=== PATIENT | female | born 1985 | race Caucasian/White ===

== ENCOUNTER 2017-05-24 22:19 | Emergency (ER) | payer OTHER ==
[2017-05-24 22:26] VITALS: BP 111/69; PULSE 82; TEMP 98.1; BMI 24.7
--- NOTE | 2017-05-24 22:26 | PDOC ---
History of Present Illness - General Chief Complaint: Pain Stated Complaint: PELVIC PAIN History Source: Patient Exam Limitations: No Limitations - History of Present Illness Initial Comments: 05/24/17 23:05 Several epsiodes of severe pelvic cramping since monday. Went to urgent care today, had Urine and US after normal pelvic exam. Does not have the results of the us yet. Pain happened again so that is why she is here. Timing/Duration: 1 week, getting worse, intermittent Severity: moderate Modifying Factors: worse with: cold therapy, eating, immobilization, medication , movement, rest, other Associated Symptoms: denies: denies symptoms, chest pain, cough, diaphoresis, fever/chills, headaches, loss of appetite, malaise, nausea/vomiting, rash, seizure, shortness of breath, syncope, weakness, other Past History - Past Medical History Home Medications: Ambulatory Orders Ondansetron [Zofran Odt -] 4 mg SL TID #21 od.tablet 05/24/17 Oxycodone HCl/Acetaminophen [Percocet 5-325 mg Tablet] 1 - 2 tab PO Q6H #20 tab MDD 6 05/24/17 COPD: No Other medical history: OVARIAN CYST - Suicide/Smoking/Psychosocial Hx Smoking History: Unknown if ever smoked Have you smoked in the past 12 months: No Number of Cigarettes Smoked Daily: 0 Information on smoking cessation initiated: No Hx Alcohol Use: No Drug/Substance Use Hx: No Substance Use Type: None Review of Systems - Review of Systems Able to Perform ROS?: Yes Is the patient limited Swedish proficient: No Constitutional: No: Symptoms Reported HEENTM: No: Symptoms Reported Respiratory: No: Symptoms reported Cardiac (ROS): No: Symptoms Reported ABD/GI: Yes: See HPI : Yes: See HPI Musculoskeletal: No: Symptoms Reported Integumentary: No: Symptoms Reported Neurological: No: Symptoms reported Psychiatric: No: Anxiety, Depression Endocrine: No: Symptoms Reported Hematologic/Lymphatic: No: Symptoms Reported All Other Systems: Reviewed and Negative *Physical Exam - Vital Signs Last Vital Signs Temp Pulse Resp BP Pulse Ox 98.1 F 82 14 111/69 100 05/24/17 22:23 05/24/17 22:23 05/24/17 22:23 05/24/17 22:23 05/24/17 22:23 - Physical Exam General Appearance: Yes: Appropriately Dressed. No: Apparent Distress HEENT: positive: Normal ENT Inspection, Normal Voice Neck: positive: Supple. negative: Tender Respiratory/Chest: positive: Lungs Clear, Normal Breath Sounds Cardiovascular: positive: Regular Rhythm, Regular Rate. negative: Murmur Female Pelvic Exam: positive: other (deferred- had one earlier today) Gastrointestinal/Abdominal: positive: Flat, Soft Rectal Exam: positive: deferred Musculoskeletal: positive: Normal Inspection Extremity: positive: Normal Inspection Integumentary: positive: Normal Color, Dry, Warm Neurologic: positive: Fully Oriented, Alert, Normal Mood/Affect Medical Decision Making - Medical Decision Making 05/24/17 23:28 Left Ovarian Cyst - US otherwise unremarkable Urine Trace Leuk Esterase, already started on antibiotic at urgent care this morning. *DC/Admit/Observation/Transfer Diagnosis at time of Disposition: Ovarian cyst, left - Discharge Dispostion Disposition: HOME Condition at time of disposition: Good Admit: No - Referrals Referrals: Chava Edwards MD [Primary Care Provider] - - Patient Instructions Printed Discharge Instructions: DI for Ovarian Cyst Additional Instructions: Claudette- Sorry this hurts so badly. Use the percocet if you need it otherwise just take motrin. Return to us if worse. Follow up with your [facility]. Hope you are feeling better soon. Jac- Dr. Paul Copeland - Post Discharge Activity
[2017-05-24 23:13] LABS: PH,URINE 6.5 (4.5-8); URINE APPEARANCE Clear; URINE BILIRUBIN Negative (NEGATIVE); URINE BLOOD Negative (NEGATIVE); URINE GLUCOSE (UA) Negative (NEGATIVE); URINE KETONE Negative (NEGATIVE); URINE NITRITE Negative (NEGATIVE); URINE PROTEIN Negative (NEGATIVE); URINE UROBILINOGEN 0.2 (0.2-1.0)
[2017-05-24 23:19] LABS: URINE COLOR YELLOW; URINE LEUK ESTERASE TRACE (NEGATIVE)
[2017-05-24 23:28] LABS: URINE BACTERIA FEW /hpf (NEGATIVE); URINE RBC 0-2 /hpf (0-3)
[2017-05-24] MEDS ORDERED: ONDANSETRON *ODT* 4 MG TABLET SL ONE (23:34)
[2017-05-24] MEDS ORDERED: ONDANSETRON *ODT* 4 MG TABLET ONE (23:40)
== END 2017-05-24 23:44 | disposition home or self-care (01) ==
LOC: FER 22:19
DX: N83.202 Unspecified ovarian cyst, left side (principal)
CPT/HCPCS: 76830-TC; 81003; 81015; 84703; 99282-25

== ENCOUNTER 2023-08-22 15:44 | Emergency (ER) | payer OTHER ==
[2023-08-22] MEDS ORDERED: DEXAMETHASONE SOD PHOSPHATE 10 MG/1 ML VIAL IM ONE (15:50)
[2023-08-22 15:56] VITALS: BP 117/78; PULSE 89; RESP 16; TEMP 98.4; BMI 30.1
[2023-08-22 16:25] LABS: HEMOGLOBIN 12.7 G/dL (10.7-15.3); MCH 26.5 pg (25.7-33.7); MCHC 33.5 g/dl (32.0-36.0); MEAN CELL VOLUME 79.1 fl (80-96); MEAN PLT VOLUME 9.3 fl (7.5-11.1); PLATELET COUNT 255.8 10^3/uL (134-434); RDW 16.3 % (11.6-15.6); WHITE BLOOD COUNT 6.5 10^3/uL (4.0-10.8)
[2023-08-22 16:36] LABS: EPITHELIAL CELLS 0-5 /hpf
[2023-08-22 16:37] LABS: ALBUMIN 4.6 g/dl (3.4-5.0); BILIRUBIN,TOTAL 0.3 mg/dl (0.2-1); CALCIUM 9.7 mg/dl (8.5-10.1); CREATININE 0.8 mg/dl (0.6-1.3); POTASSIUM 3.9 mmol/L (3.5-5.1); TOT PROT 6.7 g/dl (6.4-8.2)
== END 2023-08-22 18:02 | disposition home or self-care (01) ==
LOC: FER 15:44
DX: O20.9 Hemorrhage in early pregnancy, unspecified (principal); Z3A.01 Less than 8 weeks gestation of pregnancy
CPT/HCPCS: 36415; 76830-TC; 80053; 81003; 81015; 84702; 85027; 86850; 86900; 86901; 87086; 99284-25

== ENCOUNTER 2023-08-25 13:21 | Emergency (ER) | payer OTHER ==
[2023-08-25 13:53] VITALS: BP 107/63; PULSE 81; RESP 18; TEMP 98.9; BMI 29.5
== END 2023-08-25 16:34 | disposition home or self-care (01) ==
LOC: FER 13:21
DX: O02.1 Missed abortion (principal); R10.32 Left lower quadrant pain; R10.2 Pelvic and perineal pain
CPT/HCPCS: 36415; 76830-TC; 84702; 84703; 99284-25